=== PATIENT | female | born 1980 | race Hispanic/Latino ===

== ENCOUNTER 2017-07-23 03:02 | Emergency (ER) | payer BC ==
[2017-07-23 03:11] VITALS: RESP 20; O2SAT 100
[2017-07-23] MEDS ORDERED: Sodium Chloride 0.9% 1,000 ML IV ONE (03:17)
[2017-07-23] MEDS ORDERED: Sodium Chloride 0.9% 1,000 ML ONE (03:21)
[2017-07-23 03:32] LABS: RBC URINE 1179 /hpf (0-3); URINE BILIRUBIN NEGATIVE (NEGATIVE); URINE BLOOD 3+ (NEGATIVE); URINE COLOR Amber (YELLOW); URINE GLUCOSE (UA) NORMAL (Normal); URINE KETONE NEGATIVE (NEGATIVE); URINE LEUKOCYTE ESTERASE NEG Leu/uL (Negative); URINE PROTEIN 2+ mg/dL (NEGATIVE); URINE UROBILINOGEN NORMAL mg/dL (0.2-1.0); WBC URINE 12 /hpf (0-5)
[2017-07-23 03:34] LABS: BASO # 0.1 K/uL (0.0-0.2); BASO % 0.7 % (0.0-2.0); EOS # 0.4 K/uL (0.0-0.7); EOS % 4.6 % (0.0-4.0); HEMATOCRIT 36.7 % (34.0-47.0); LYMPH # 2.6 K/uL (1.0-4.3); LYMPH % 28.4 % (20.0-40.0); MEAN CELL VOLUME 84.1 fL (81.0-99.0); MEAN CORPUSCULAR HEMOGLOBIN 28.8 pg (27.0-31.0); MEAN CORPUSCULAR HGB CONC 34.3 g/dL (33.0-37.0); MEAN PLATELET VOLUME 7.1 fL (7.2-11.7); MONO # 0.6 K/uL (0.0-0.8); MONO % 6.6 % (0.0-10.0); RED CELL DISTRIBUTION WIDTH 12.6 % (11.5-14.5); WHITE BLOOD COUNT 9.2 K/uL (4.8-10.8)
[2017-07-23 03:37] LABS: CHLORIDE 103 mmol/L (98-107); POTASSIUM 3.5 mmol/L (3.6-5.2); SODIUM 138 mmol/L (132-148)
[2017-07-23 03:39] LABS: AST/SGOT 28 U/L (14-36); BILIRUBIN,TOTAL 0.4 mg/dL (0.2-1.3); CARBON DIOXIDE 22 mmol/L (22-30); GFR AFRICAN-AMERICAN > 60
[2017-07-23 03:40] LABS: ALB/GLOB RATIO 1.1 (1.0-2.1); ALKALINE PHOSPHATASE 65 U/L (38-126); ALT/SGPT 33 U/L (9-52); BLOOD UREA NITROGEN 12 mg/dL (7-17); CALCIUM 9.3 mg/dl (8.6-10.4); GLUCOSE,RANDOM 113 mg/dL (65-105); TOTAL PROTEIN 8.3 g/dL (6.3-8.3)
[2017-07-23] MEDS ORDERED: Morphine 4 MG/ML VIAL IV ONE (04:01)
[2017-07-23] MEDS ORDERED: Morphine 4 MG/ML VIAL ONE (04:06)
--- NOTE | 2017-07-23 04:35 | CT ---
EXAM: CT Abdomen and Pelvis Without Intravenous Contrast CLINICAL HISTORY: 37 years old, female; Pain; Other: Right flank; Additional info: Rt flank pain TECHNIQUE: Axial computed tomography images of the abdomen and pelvis without intravenous contrast. All CT scans at this facility use one or more dose reduction techniques, viz.: automated exposure control; ma/kV adjustment per patient size (including targeted exams where dose is matched to indication; i.e. head); or iterative reconstruction technique. Coronal and sagittal reformatted images were created and reviewed. COMPARISON: No relevant prior studies available. FINDINGS: Lower thorax: The visualized portions of the lung bases are normal. ABDOMEN: Liver: There are no focal liver lesions present. Gallbladder and bile ducts: The gallbladder is contracted but otherwise normal. No calcified stones. No ductal dilation. Pancreas: The pancreas is normal. No ductal dilation. Spleen: The spleen is normal. Adrenals: The adrenal glands are normal. Kidneys and ureters: Right kidney demonstrates mild hydronephrosis and proximal hydroureter to level of L5 where there is an obstructing 4 mm calculus in series 2, image 46. The left kidney is normal. Right kidney demonstrates a punctate mid pole nonobstructing calculus. Stomach and bowel: The stomach is normal. There is no evidence of intestinal obstruction. No mucosal thickening. Appendix: No findings to suggest acute appendicitis. PELVIS: Bladder: Bladder is decompressed. No stones. Reproductive: The uterus is normal. The ovaries are normal. ABDOMEN and PELVIS: Intraperitoneal space: There is no evidence of free intraperitoneal fluid. There is no free intraperitoneal air. Bones/joints: There are mild degenerative changes present. No acute fracture. No dislocation. Soft tissues: Unremarkable. Vasculature: The aorta is normal. No abdominal aortic aneurysm. Lymph nodes: There is no evidence of lymphadenopathy. IMPRESSION: Right kidney demonstrates mild hydronephrosis and proximal hydroureter to level of L5 where there is an obstructing 4 mm calculus in series 2, image 46.
--- NOTE | 2017-07-23 04:57 | C.PDOC ---
History Of Present Illness 37 y/o female c/o sudden onset right suprapubic pain that radiates to the right flank associated with urinary hesitancy and urgency. Patient reports several episodes of associated vomiting. Patient notes having recurrent subjective fever and intermittent vomiting for the past 2 weeks, where the fever has spontaneously self-resolved. Patient denies fever, diarrhea, or constipation. No recent travel. Time Seen by Provider: 07/23/17 03:12 Chief Complaint (Nursing): Abdominal Pain History Per: Patient History/Exam Limitations: no limitations Onset/Duration Of Symptoms: Hrs, Sudden Onset Current Symptoms Are (Timing): Still Present Severity: Mild Location Of Pain/Discomfort: Suprapubic Radiation Of Pain To:: Flank (right) Quality Of Discomfort: "Pain" Associated Symptoms: Urinary Symptoms (Urinary hesitancy and urgency). denies: Fever, Diarrhea, Constipation Recent travel outside of the [place]: No Additional History Per: Patient Past Medical History Reviewed: Historical Data, Nursing Documentation, Vital Signs Vital Signs: Last Vital Signs Temp 98.2 F 07/23/17 04:57 Pulse 78 07/23/17 04:57 Resp 20 07/23/17 04:57 BP 120/63 07/23/17 04:57 Pulse Ox 100 07/23/17 05:09 - Medical History PMH: Asthma, Migraine Family History: States: Unknown Family Hx - Social History Hx Tobacco Use: No Hx Alcohol Use: No Hx Substance Use: No - Immunization History Hx Tetanus Toxoid Vaccination: Yes Hx Influenza Vaccination: Yes Hx Pneumococcal Vaccination: No Review Of Systems Except As Marked, All Systems Reviewed And Found Negative. Constitutional: Negative for: Fever, Chills Gastrointestinal: Positive for: Vomiting, Abdominal Pain, Other (Right flank pain). Negative for: Diarrhea, Constipation Genitourinary: Positive for: Other (Urinary hesitancy and urgency) Physical Exam - Physical Exam Appears: Non-toxic, No Acute Distress Skin: Warm, Dry Head: Atraumatic, Normacephalic Cardiovascular: Rhythm Regular, No Murmur Respiratory: Normal Breath Sounds, No Rales, No Rhonchi, No Wheezing Gastrointestinal/Abdominal: Soft, Tenderness (Right Suprapubic tenderness), Other (No McBurneys tenderness) Back: CVA Tenderness (Right CVA tenderness) Neurological/Psych: Oriented x3, Normal Speech ED Course And Treatment - Laboratory Results Result Diagrams: 07/23/17 03:28 07/23/17 03:28 O2 Sat by Pulse Oximetry: 100 (RA) Pulse Ox Interpretation: Normal - CT Scan/US CT Abd/Pel w/o Other Rad Studies (CT/US): Interpreted By Me, Read By Radiologist CT/US Interpretation: IMPRESSION: Right kidney demonstrates mild hydronephrosis and proximal hydroureter to level of L5 where there. is an obstructing 4 mm calculus in series 2, image 46. Progress Note: Plans: labs, fluids, toradol IV, Morphine, CT Abd/Pel w/o, Flomax , Zofran, UA. CT Abd and labs results discussed with the patient. Patient feels better after medications and IVF. Pt advised to follow up with urology within 1-2 days for further evaluation and to return if symptoms worsens. Pt understands and does agree with plan. Reevaluation Time: 05:18 Reassessment Condition: Improved Disposition Counseled Patient/Family Regarding: Diagnosis, Need For Followup, Rx Given - Disposition Referrals: Orlando Barahona DO [Primary Care Provider] - Nehemiah Shukla MD [Staff Provider] - Disposition: HOME/ ROUTINE Disposition Time: 05:19 Condition: STABLE Additional Instructions: Increase PO fluids use strainer when urinating- If stone take to urologist Take meds as directed Return to ER if worse Prescriptions: Ibuprofen [Motrin] 600 mg PO Q6H #20 tab Tamsulosin [Flomax] 0.4 mg PO DAILY #7 cap Instructions: Kidney Stones (ED), Renal Colic (ED) Forms: [employer] (Angolan) - Clinical Impression Clinical Impression: Renal colic on right side, Kidney stone on right side - Scribe Statement The provider has reviewed the documentation as recorded by the Scribe Kimberly thomas All medical record entries made by the Scribe were at my direction and personally dictated by me. I have reviewed the chart and agree that the record accurately reflects my personal performance of the history, physical exam, medical decision making, and the department course for this patient. I have also personally directed, reviewed, and agree with the discharge instructions and disposition.
[2017-07-23 04:58] VITALS: BP 120/63; PULSE 78; TEMP 98.2
== END 2017-07-23 05:29 | disposition home or self-care (01) ==
LOC: SUPCPDRO 03:02 → C.ER 03:02
DX: N13.2 Hydronephrosis with renal and ureteral calculous obstruction (principal)
CPT/HCPCS: 74176; 80053; 81001; 83690; 84703; 85025; 96361; 96374; 96375; 99285; J1885; J2270; J2405; J7040

== ENCOUNTER 2018-07-18 20:13 | Emergency (ER) | payer BC ==
[2018-07-18 20:36] VITALS: RESP 18
--- NOTE | 2018-07-18 21:22 | C.PDOC ---
History Of Present Illness 38-year-old female is brought to the ED by ambulance for medical clearance. Patient was at the dentist getting a filling and received localized anesthesia with novocaine b/l teeth. After lying down for procedure, patient quickly sat up to spit and started feeling lightheaded, noted her right eye was twitching and had numbness to her left side. Patient states she felt the room getting dark and felt like she was going to pass out. Her dentist was concerned and called the ambulance to send her to the ED for further evaluation. Patient states she had a mild headache all day and is complaining of persistent numbness to her b/l cheeks after the anesthesia. Patient denies nausea, vomiting, chest pain, shortness of breath or focal weakness. Time Seen by Provider: 07/18/18 20:26 Chief Complaint (Nursing): Medical Clearance History Per: Patient History/Exam Limitations: no limitations Onset/Duration Of Symptoms: Hrs Current Symptoms Are (Timing): Better Additional History Per: Patient Past Medical History Reviewed: Historical Data, Nursing Documentation, Vital Signs Vital Signs: Last Vital Signs Temp 98.4 F 07/18/18 20:24 Pulse 64 07/18/18 20:24 Resp 18 07/18/18 20:24 BP 110/76 07/18/18 20:24 Pulse Ox 96 07/18/18 20:24 - Medical History PMH: Asthma, Migraine Surgical History: No Surg Hx Family History: States: Unknown Family Hx - Social History Hx Tobacco Use: No Hx Alcohol Use: No Hx Substance Use: No - Immunization History Hx Tetanus Toxoid Vaccination: Yes Hx Influenza Vaccination: Yes Hx Pneumococcal Vaccination: No Review Of Systems Constitutional: Positive for: Other (lightheaded). Negative for: Fever, Chills Eyes: Negative for: Pain Cardiovascular: Negative for: Chest Pain, Palpitations Respiratory: Negative for: Cough, Shortness of Breath, SOB with Excertion, Wheezing Gastrointestinal: Negative for: Nausea, Vomiting, Abdominal Pain, Diarrhea, Constipation Genitourinary: Negative for: Dysuria Musculoskeletal: Negative for: Neck Pain, Shoulder Pain, Back Pain Neurological: Positive for: Numbness (b/l), Headache (mild), Other (lightheadedness ). Negative for: Weakness (no focal) Psych: Negative for: Anxiety, Depression Physical Exam - Physical Exam Appears: Well, Non-toxic, No Acute Distress Skin: Normal Color, Warm, Dry Head: Atraumatic, Normacephalic Eye(s): bilateral: Normal Inspection, PERRL, EOMI Oral Mucosa: Moist Neck: Supple Chest: Symmetrical, No Deformity, No Tenderness Cardiovascular: Rhythm Regular, No Murmur Respiratory: Normal Breath Sounds, No Rales, No Rhonchi, No Wheezing Gastrointestinal/Abdominal: Soft Back: Normal Inspection, No CVA Tenderness Extremity: Normal ROM, Capillary Refill (less than 2 seconds ) Neurological/Psych: Oriented x3, Normal Speech, Normal Cognition, Normal Cranial Nerves, Normal Motor Gait: Steady ED Course And Treatment ECG: Interpreted By Me, Viewed By Me ECG Rhythm: Sinus Rhythm Interpretation Of ECG: Normal Sinus Rhythm at rate 56bpm. Normal intervals. No ST changes. Rate From EC O2 Sat by Pulse Oximetry: 96 (on RA) Pulse Ox Interpretation: Normal Medical Decision Making Medical Decision Making: Progress: In ED patient has no complaint other than anesthesia from her dental procedure CT Head and EKG ordered and reviewed. 9:47PM EKG shows NSR at 54bpm with normal intervals and no st changes. CT negative for acute intracranial abnormality. Symptoms consistent with near syncope from vasovagal syncope. She is neurologically intact. She was complaining of b/l numbness to mouth consistent with areas of anesthesia. On reevaluation this had resolved. Instructed to follow-up with PMD Disposition - Disposition Disposition: HOME/ ROUTINE Disposition Time: 21:48 Condition: GOOD Additional Instructions: Follow-up with PMD within 2 days. Return to ED if condition worsens. Instructions: Syncope (Fainting), Vasovagal Response (DC) Forms: [employer] (Gu[place]ian) - Clinical Impression Clinical Impression: Syncope - Scribe Statement The provider has reviewed the documentation as recorded by the Scribe (Monica Black) Provider Attestation: All medical record entries made by the Scribe were at my direction and personally dictated by me. I have reviewed the chart and agree that the record accurately reflects my personal performance of the history, physical exam, medical decision making, and the department course for this patient. I have also personally directed, reviewed, and agree with the discharge instructions and disposition.
[2018-07-18 22:21] VITALS: BP 105/68; PULSE 60; TEMP 97.8
[2018-07-18 22:47] VITALS: O2SAT 96
--- NOTE | 2018-07-19 07:05 | CT ---
Date of service: 07/18/2018 PROCEDURE: CT HEAD WITHOUT CONTRAST. HISTORY: syncope COMPARISON: None available. TECHNIQUE: Axial computed tomography images were obtained through the head/brain without intravenous contrast. Radiation dose: Total exam DLP = 1124 mGy-cm. This CT exam was performed using one or more of the following dose reduction techniques: Automated exposure control, adjustment of the mA and/or kV according to patient size, and/or use of iterative reconstruction technique. FINDINGS: HEMORRHAGE: No intracranial hemorrhage. BRAIN: No mass effect or edema. No atrophy or chronic microvascular ischemic changes. VENTRICLES: Unremarkable. No hydrocephalus. CALVARIUM: Unremarkable. PARANASAL SINUSES: Unremarkable as visualized. No significant inflammatory changes. MASTOID AIR CELLS: Unremarkable as visualized. No inflammatory changes. OTHER FINDINGS: Prominent streak artifact from left metallic earring. IMPRESSION: No acute intracranial abnormality. If symptoms persists, consider correlation with MRI. These findings were preliminarily reported by Dr. Kyra Zapien at 9:42 p.m. on 07/18/2018.
--- NOTE | 2018-07-19 15:34 | CARD ---
APPROVED REPORT Date of service: 07/18/2018 EKG Measurement Heart [id number] <Conclusion> Sinus bradycardia Otherwise normal ECG
== END 2018-07-18 22:21 | disposition home or self-care (01) ==
LOC: C.ER 20:13
DX: R55 Syncope and collapse (principal)